=== PATIENT | male | born 1975 | race Caucasian/White ===

== ENCOUNTER 2016-03-09 12:12 | Emergency (ER) | payer OTHER ==
[2016-03-09 12:26] VITALS: TEMP 98.4; BMI 31.9
--- NOTE | 2016-03-09 13:56 | PDOC ---
History of Present Illness - General Chief Complaint: Cold Symptoms Stated Complaint: COUGH, FLU LIKE SYMPTOMS Time Seen by Provider: 03/09/16 13:34 History Source: Patient Exam Limitations: No Limitations - History of Present Illness Initial Comments: 03/09/16 13:50 40 yr male no medical history presents with cough for one week. no fever or chills. Pt's with same symptoms. Pt denies SOB no chest pain. Pt states in the past has used inhaler and makes him feel better. Severity: reports: mild Past History - Past Medical History Allergies/Adverse Reactions: Allergies Allergy/AdvReac Type Severity Reaction Status Date / Time No Known Allergies Allergy Verified 03/09/16 12:26 Home Medications: Ambulatory Orders Clindamycin [Cleocin -] 300 mg PO QID #40 capsule 11/29/14 Clindamycin [Cleocin -] 300 mg PO Q6HPO #28 capsule 12/01/14 Albuterol Sulfate Inhaler - [Ventolin Hfa Inhaler -] 1 - 2 inh PO Q4H #1 inhaler 03/09/16 Benzonatate [Tessalon Pearls -] 200 mg PO TID PRN #21 cap 03/09/16 Asthma: Yes Hypercholesterolemia: Yes - Psycho/Social/Smoking Cessation Hx Suicidal Ideation: No Smoking History: Never smoked Information on smoking cessation initiated: No Hx Alcohol Use: No Drug/Substance Use Hx: No Substance Use Type: None Hx Substance Use Treatment: No Respiratory Specific PMHX - Complaint Specific PMHX Bronchitis: Yes Review of Systems - Review of Systems Able to Perform ROS?: Yes Is the patient limited Andorran proficient: No Constitutional: No: Symptoms Reported HEENTM: No: Symptoms Reported Respiratory: Yes: See HPI, Cough Cardiac (ROS): No: Symptoms Reported ABD/GI: No: Symptoms Reported : No: Symptoms Reported Musculoskeletal: No: Symptoms Reported Integumentary: No: Symptoms Reported Neurological: No: Symptoms reported *Physical Exam - Vital Signs Last Vital Signs Temp Pulse Resp BP Pulse Ox 98.4 F 81 18 150/100 98 03/09/16 12:23 03/09/16 12:23 03/09/16 12:23 03/09/16 12:23 03/09/16 12:23 - Physical Exam General Appearance: Yes: Nourished, Appropriately Dressed HEENT: positive: EOMI, BARBIE, Normal ENT Inspection, TMs Normal, Pharynx Normal Neck: positive: Supple Respiratory/Chest: positive: Lungs Clear, Normal Breath Sounds Cardiovascular: positive: Regular Rhythm, Regular Rate Gastrointestinal/Abdominal: positive: Normal Bowel Sounds, Soft Musculoskeletal: positive: Normal Inspection Extremity: positive: Normal Capillary Refill, Normal Inspection, Normal Range of Motion Integumentary: positive: Normal Color, Dry, Warm Neurologic: positive: licensed staff mft II-XII NML intact, Fully Oriented, Alert, Normal Mood/ Affect *DC/Admit/Observation/Transfer Diagnosis at time of Disposition: Cough - Discharge Dispostion Disposition: HOME Condition at time of disposition: Good - Prescriptions Prescriptions: Benzonatate [Tessalon Pearls -] 200 mg PO TID PRN #21 cap PRN Reason: Cough Albuterol Sulfate Inhaler - [Ventolin Hfa Inhaler -] 1 - 2 inh PO Q4H #1 inhaler - Referrals Referrals: Pietro Thomas MD [Staff Physician] - - Patient Instructions Additional Instructions: drink pleanty of water to stay hydrated use the inhaler as directed take tessalon for coughing as needed follow with your doctor or with
[2016-03-09 14:04] VITALS: BP 137/89; PULSE 77
== END 2016-03-09 14:21 | disposition home or self-care (01) ==
LOC: JERFT 12:12
DX: R05 Cough (principal); J45.909 Unspecified asthma, uncomplicated; E78.00 Pure hypercholesterolemia, unspecified
CPT/HCPCS: 99281-25

== ENCOUNTER 2017-03-30 19:07 | Emergency (ER) | payer OTHER ==
--- NOTE | 2017-03-30 19:22 | PDOC ---
Rapid Medical Evaluation Time Seen by Provider: 03/30/17 19:18 Medical Evaluation: Allergies Allergy/AdvReac Type Severity Reaction Status Date / Time No Known Allergies Allergy Verified 03/09/16 12:26 I have performed a brief in-person evaluation of this patient. The patient presents with a chief complaint of: lock jaw on and off for the past few weeks Pertinent physical exam findings: none I have ordered the following: nothing The patient will proceed to the ED for further evaluation.
[2017-03-30 19:25] VITALS: TEMP 97.9; BMI 31.4
--- NOTE | 2017-03-30 20:09 | PDOC ---
Attending Attestation - Resident Resident Name: DonnyAndrearosa [email or web address] - ED Attending Attestation I have performed the following: I have examined & evaluated the patient, The case was reviewed & discussed with the resident, I agree w/resident's findings & plan, Exceptions are as noted - HPI HPI: 03/30/17 21:14 41y M no pmhx presents with with complaint of neck spasms. The pt states that he occasionally has a very severe spasm of his neck that lasts for 5-10 min, and he usually forces his neck back to its position and that resolves it. HE last had this episode on Sunday when he got home from work when he bent over. His previous episode prior to that was 2 years ago. THe pt denies any numbness/ tingling/weakness, cp, palpitations, n/v, neck pain, fever/chills, back pain, abd pain. Pt states he has no known medical problems. he does use a host of otc supplements/natural meds. on exam the pts exam is unremarkble ent exam reveals no bnormal masses back exam unremarkble without any tenderness/massess pulm cta card: rrr w/o mrg psych: excited, but w/o pressured spech, no si or hi neuro no facial assymetric, cmo & president strenth symmetric b/l, normal gait pt does appear very energenic, ddx hyperthyroid vs psych/hypmania, his neck spasms/movements -?msk spasms vs. ?focal seizures? - pt has a couple of episodes of trauma in the past (head injury when he was very young, and a fall from roof approx 10-15 yrs ago without any head injury or LOC) will r/o metabolic dernagements here if unremarkble will have pt fu with PMD and neuro 03/30/17 22:39 pts labs reviewed TSH slightly elevated ALT/AST also slightly elevated will refer the pt to his PMD and neuro for fu Heart Score/ECG Review - ECG Impressions Comment:: 03/30/17 22:40 Twelve-lead EKG was performed and reviewed by me. There is normal sinus rhythm with a normal rate. rate of 79 Left axis deviation no sT changes suggestive of acute ischemia
--- NOTE | 2017-03-30 20:44 | PDOC ---
History of Present Illness - General Chief Complaint: Pain Stated Complaint: HEADACHE Time Seen by Provider: 03/30/17 19:18 - History of Present Illness Initial Comments: 41 year old male with no PMH presenting for sudden onset right jaw pain and contraction earlier today. States that he has had these episodes of jaw pain and contractions over the past few years but has never seen a physician for this and does not have a PCP. Of note, during the entire exam the patient was extremely energetic and had very rapid, expressive hand movements with fast speech. States that he sleeps very little and often has very high energy. Per family at bedside, he has episodes where he is much more energetic than usual and he is currently in one of those episodes. The patient denies any VH/AH, substance abuse, ideas grandiosity, fevers, chills, nausea, vomiting, diarrhea, constipation, SOB, cough, or other illness. Of note, he does take many herbal and nutritional supplements including B vitamins, multivitamin, garlic, fish oil , flack seed oil, ginseng, megamen supplement, and a few other supplements. 03/30/17 20:16 Past History - Past Medical History Allergies/Adverse Reactions: Allergies Allergy/AdvReac Type Severity Reaction Status Date / Time No Known Allergies Allergy Verified 03/09/16 12:26 Home Medications: Ambulatory Orders Albuterol Sulfate Inhaler - [Ventolin Hfa Inhaler -] 1 - 2 inh PO Q4H #1 inhaler 03/09/16 Asthma: Yes CVA: No COPD: No Hypercholesterolemia: Yes - Suicide/Smoking/Psychosocial Hx Smoking History: Never smoked Have you smoked in the past 12 months: No Information on smoking cessation initiated: No Hx Alcohol Use: No Drug/Substance Use Hx: No Substance Use Type: None Hx Substance Use Treatment: No Review of Systems - Review of Systems Constitutional: No: Chills, Diaphoresis, Fever, Loss of Appetite HEENTM: No: Eye Pain, Blurred Vision Respiratory: No: Cough, Orthopnea, Shortness of Breath Cardiac (ROS): No: Chest Pain, Edema, Irregular Heart Rate ABD/GI: No: Diarrhea, Nausea, Vomiting : No: Dysuria, Discharge, Frequency, Hematuria, Pain Musculoskeletal: No: Back Pain, Gout, Joint Pain Integumentary: No: Bruising, Lesions, Lumps, Pallor Neurological: Yes: Paresthesia. No: Headache, Numbness Psychiatric: No: Anxiety, Depression, Frequent Crying, Emotional Problems *Physical Exam - Vital Signs Last Vital Signs Temp Pulse Resp BP Pulse Ox 97.9 F 94 H 16 167/119 97 03/30/17 19:20 03/30/17 19:20 03/30/17 19:20 03/30/17 19:20 03/30/17 19:20 - Physical Exam General Appearance: Yes: Nourished, Appropriately Dressed, Other (Hyperactive). No: Apparent Distress HEENT: positive: EOMI, BARBIE, Normal ENT Inspection, Normal Voice, Symmetrical Neck: positive: Trachea midline, Normal Thyroid, Supple. negative: Tender, Rigid Respiratory/Chest: positive: Lungs Clear, Normal Breath Sounds. negative: Chest Tender, Respiratory Distress, Accessory Muscle Use Cardiovascular: positive: Regular Rhythm, Regular Rate Gastrointestinal/Abdominal: positive: Normal Bowel Sounds, Flat, Soft. negative : Tender Musculoskeletal: positive: Normal Inspection Extremity: positive: Normal Capillary Refill, Normal Inspection, Normal Range of Motion. negative: Tender Integumentary: positive: Normal Color, Dry, Warm Neurologic: positive: Fully Oriented, Alert, Normal Response, Motor Strength 5/ 5. negative: Normal Mood/Affect (He was pleasant but talking at a very fast rate and overall very hyperactive.) ED Treatment Course - LABORATORY CBC & Chemistry Diagram: 03/30/17 20:30 03/30/17 20:30 Medical Decision Making - Medical Decision Making 41 year old male presenting with sudden right jaw spasm earlier today and has a history of these but they have become more frequent. Coincidentally, he has also lost his job recently. Per his family he is currently more energetic than usual. He does take a slew of supplements but denies drug/alcohol/ or other substance abuse. Differential for this presentation is quite broad. His PE was unremarkable. His hyperactivity leads me to believe he is intoxicated, he is experiencing a manic/ hypomanic episode, he has a hormonal/ electrolyte imbalance, or he has some toxidrome from his supplementation. Will get CBC, CMP , TSH, and urine drug screen. 03/30/17 20:51 TSH slightly elevated at 4.72 and LFTs elevated at AST 39 and ALT 86. WBC slightly elavted at 12.6. Will have patient follow up with the [facility] and an ENT for vague right ear complaints. He does have a small non-draining cyst on his right ear lobe. 03/30/17 22:39 *DC/Admit/Observation/Transfer Diagnosis at time of Disposition: Jaw pain, non-TMJ - Discharge Dispostion Disposition: HOME Condition at time of disposition: Improved Admit: No - Referrals Referrals: [facility] [Provider Group] - Patient Instructions Additional Instructions: Your labs were mostly normal except your thyroid hormone was slightly elevated and your liver enzymes were also slightly elevated. These should be followed up by your primary care physician. We are unsure why you are having these jaw pains and sensations but you should discuss this with your doctor at the clinic. Please go to the [facility] on Sunday to be evaluated. Please return if you have any new or worsening symptoms. - Post Discharge Activity
[2017-03-30 20:47] LABS: BASO % 0.3 % (0-2.0); EOS % 0.5 % (0-4.5); HEMATOCRIT 49.7 % (35.4-49); HEMOGLOBIN 16.9 GM/dL (11.7-16.9); MCH 29.2 pg (25.7-33.7); MCHC 34.1 g/dl (32.0-35.9); MEAN CELL VOLUME 85.8 fl (80-96); MEAN PLT VOLUME 8.4 fl (7.5-11.1); MONO % 6.3 % (3.8-10.2); NEUT % 78.9 % (42.8-82.8); PLATELET COUNT 221 K/MM3 (134-434); RBC 5.79 M/mm3 (4.00-5.60); RDW 13.2 % (11.9-15.9); WHITE BLOOD COUNT 12.7 K/mm3 (4.0-10.0)
[2017-03-30 21:06] LABS: URINE APPEARANCE CLEAR; URINE BILIRUBIN NEGATIVE (NEGATIVE); URINE BLOOD NEGATIVE (NEGATIVE); URINE COLOR LTYELLOW; URINE GLUCOSE (UA) NEGATIVE (NEGATIVE); URINE KETONE NEGATIVE (NEGATIVE); URINE LEUK ESTERASE NEGATIVE (NEGATIVE); URINE NITRITE NEGATIVE (NEGATIVE); URINE PROTEIN NEGATIVE (NEGATIVE); URINE UROBILINOGEN NEGATIVE mg/dL (0.2-1.0)
[2017-03-30 21:21] LABS: ALBUMIN 4.4 g/dl (3.4-5.0); ANION GAP 9 (8-16); BILIRUBIN,TOTAL 0.9 mg/dL (0.2-1.0); BLOOD UREA NITROGEN 15 mg/dL (7-18); CALCIUM 9.4 mg/dL (8.5-10.1); CHLORIDE 103 mmol/L (98-107); CO2 25 mmol/L (21-32); CREATININE 1.1 mg/dL (0.7-1.3); GLUCOSE,RANDOM 98 mg/dL (74-106); POTASSIUM 3.8 mmol/L (3.5-5.1); SGOT/AST 39 U/L (15-37); SGPT/ALT 86 U/L (12-78); SODIUM 137 mmol/L (136-145)
[2017-03-30 21:28] LABS: COCAINE, UR NEGATIVE ng/ml (CUTOFF=300); METHADONE, UR NEGATIVE ng/ml (CUTOFF=300); OPIATES, URI NEGATIVE ng/ml (CUTOFF=300); PHENCYCLIDINE,URINE NEGATIVE ng/ml (CUTOFF=25); URINE AMPHETAMINES NEGATIVE ng/ml (CUTOFF=500); URINE BARBITURATES NEGATIVE ng/ml (CUTOFF=200); URINE BENZODIAZEPINES NEGATIVE ng/ml (CUTOFF=200)
[2017-03-30 21:29] LABS: ALK PHOS 106 U/L (45-117)
[2017-03-30 21:48] VITALS: BP 120/90; PULSE 92
--- NOTE | 2017-03-31 08:52 | EKG ---
Test Reason : Blood Pressure : / mmHG Vent. Rate : 079 BPM Atrial Rate : 079 BPM P-R Int : 132 ms QRS Dur : 080 ms QT Int : 382 ms P-R-T Axes : 057 -35 -01 degrees QTc Int : 438 ms NORMAL SINUS RHYTHM LEFT AXIS DEVIATION ABNORMAL ECG WHEN COMPARED WITH ECG OF 29-NOV-2014 21:40, NO SIGNIFICANT CHANGE WAS FOUND Confirmed by MARIA ALEJANDRA PAGE, TERI ([id number]) on 03/31/2017 8:51:58 AM Referred By: Confirmed By:TERI BESS MD
== END 2017-03-30 23:02 | disposition home or self-care (01) ==
LOC: JER 19:07
DX: R68.84 Jaw pain (principal); J45.909 Unspecified asthma, uncomplicated
CPT/HCPCS: 36415; 80053; 80307; 81003; 84439; 84443; 85025; 86593; 87389; 87491; 87591; 93005; 93010; 99283-25

== ENCOUNTER 2018-07-27 21:19 | Emergency (ER) | payer OTHER | END 2018-07-27 23:01 | disposition home or self-care (01) | LOC: JERFT 21:19 → JER 23:01 ==

== ENCOUNTER 2023-02-23 14:17 | Emergency (ER) | payer OTHER ==
[2023-02-23 14:40] VITALS: BP 126/79; PULSE 109; RESP 17; TEMP 98.3; BMI 24.3
[2023-02-23 16:26] LABS: BASO % 0.8 % (0-2.0); EOS % 0.9 % (0-4.5); HEMATOCRIT 51.7 % (35.4-49); HEMOGLOBIN 17.5 GM/dL (11.7-16.9); LYMPH % 23.1 % (8-40); MCH 28.2 pg (25.7-33.7); MCHC 33.9 g/dl (32.0-35.9); MEAN CELL VOLUME 83.2 fl (80-96); MEAN PLT VOLUME 7.7 fl (7.5-11.1); MONO % 7.3 % (3.8-10.2); NEUT % 67.9 % (42.8-82.8); PLATELET COUNT 291 10^3/uL (134-434); RBC 6.21 M/mm3 (4.00-5.60); RDW 14.2 % (11.9-15.9)
[2023-02-23 16:30] LABS: EPI CELLS 2 /uL (0-25.1); HYALINE CASTS 0 /uL (0-3.1); URINE APPEARANCE CLEAR; URINE BACTERIA 9 /uL (0-1359); URINE BILIRUBIN NEGATIVE (NEGATIVE); URINE COLOR YELLOW; URINE GLUCOSE (UA) NEGATIVE (NEGATIVE); URINE KETONE NEGATIVE (NEGATIVE); URINE LEUK ESTERASE NEGATIVE (NEGATIVE); URINE NITRITE NEGATIVE (NEGATIVE); URINE PROTEIN 1+ (NEGATIVE); URINE RBC 22 /uL (0-23.9); URINE UROBILINOGEN 0.2 mg/dL (0.2-1.0); URINE WBC 7 /uL (0-25.8)
[2023-02-23 16:49] LABS: POTASSIUM 3.6 mmol/L (3.5-5.1)
[2023-02-23 16:51] LABS: BLOOD UREA NITROGEN 12.9 mg/dL (7-18); CALCIUM 8.9 mg/dL (8.5-10.1)
[2023-02-23 16:55] LABS: CREATININE 1.2 mg/dL (0.55-1.3)
[2023-02-23] MEDS ORDERED: TAMSULOSIN HCL 0.4 MG CAP PO ONE (19:15)
[2023-02-23] MEDS ORDERED: TAMSULOSIN HCL 0.4 MG CAP ONE (19:48)
== END 2023-02-23 20:33 | disposition home or self-care (01) ==
LOC: JER 14:17
DX: R30.0 Dysuria (principal); R35.0 Frequency of micturition; R33.9 Retention of urine, unspecified; N40.1 Benign prostatic hyperplasia with lower urinary tract symptoms; R39.14 Feeling of incomplete bladder emptying
CPT/HCPCS: 36415; 76856-TC; 80048; 81003; 85025; 87086; 99284-25

== ENCOUNTER 2023-04-24 16:59 | Emergency (ER) | payer OTHER ==
[2023-04-24 17:55] VITALS: BP 162/100; PULSE 103; RESP 18; TEMP 98.2; BMI 34.9
[2023-04-24] MEDS ORDERED: ACETAMINOPHEN INJECTION 100 ML IVPB ONE (19:57)
[2023-04-24 20:08] LABS: BASO % 0.8 % (0-2.0); EOS % 0.9 % (0-4.5); HEMATOCRIT 48.9 % (35.4-49); HEMOGLOBIN 16.3 GM/dL (11.7-16.9); LYMPH % 19.7 % (8-40); MCH 27.9 pg (25.7-33.7); MCHC 33.3 g/dl (32.0-35.9); MEAN CELL VOLUME 83.9 fl (80-96); MEAN PLT VOLUME 7.7 fl (7.5-11.1); MONO % 6.8 % (3.8-10.2); NEUT % 71.8 % (42.8-82.8); PLATELET COUNT 261 10^3/uL (134-434); RBC 5.83 M/mm3 (4.00-5.60); RDW 13.5 % (11.9-15.9); WHITE BLOOD COUNT 14.2 K/mm3 (4.0-10.0)
[2023-04-24] MEDS: ACETAMINOPHEN 1000 MG/100 ML BAG IVPB ONE (20:08)
[2023-04-24 20:28] LABS: POTASSIUM 3.4 mmol/L (3.5-5.1)
[2023-04-24 20:30] LABS: ALBUMIN 3.8 g/dl (3.4-5.0)
[2023-04-24 20:33] LABS: CREATININE 1.2 mg/dL (0.55-1.3)
[2023-04-24 20:35] LABS: TOT PROT 7.5 g/dl (6.4-8.2)
[2023-04-24 21:51] LABS: ACTIVATED PTT 35.5 SECONDS (25.2-36.5); INR 1.01 (0.83-1.09); PROTHROMBIN TIME (PATIENT) 11.7 SEC (9.7-13.0)
[2023-04-24] MEDS: SODIUM CHLORIDE 0.9% 500 ML INFUS.BAG IV ONE (23:25)
[2023-04-24 23:28] LABS: URINE APPEARANCE CLEAR; URINE BILIRUBIN NEGATIVE (NEGATIVE); URINE COLOR YELLOW; URINE GLUCOSE (UA) NEGATIVE (NEGATIVE); URINE KETONE NEGATIVE (NEGATIVE); URINE LEUK ESTERASE NEGATIVE (NEGATIVE); URINE NITRITE NEGATIVE (NEGATIVE); URINE PROTEIN TRACE (NEGATIVE); URINE UROBILINOGEN 0.2 mg/dL (0.2-1.0)
== END 2023-04-25 01:15 | disposition home or self-care (01) ==
LOC: JER 16:59
PROC: 3E033NZ Introduction of Analgesics, Hypnotics, Sedatives into Peripheral Vein, Percutaneous Approach (ICD-10-PCS; principal; 2023-04-24)
DX: R31.9 Hematuria, unspecified (principal); R30.0 Dysuria; R33.9 Retention of urine, unspecified; N40.1 Benign prostatic hyperplasia with lower urinary tract symptoms; R35.0 Frequency of micturition; R10.9 Unspecified abdominal pain
CPT/HCPCS: 36415; 74177-TC; 80053; 81003; 85025; 85610; 85730; 86850; 86900; 86901; 87086; 96374; 99285-25; J0131; Q9967

== ENCOUNTER 2023-10-15 16:39 | Emergency (ER) | payer OTHER ==
[2023-10-15 17:06] VITALS: BP 168/100; PULSE 92; RESP 18; TEMP 98.8; BMI 33.0
== END 2023-10-15 22:42 | disposition home or self-care (01) ==
LOC: JER 16:39
DX: E11.621 Type 2 diabetes mellitus with foot ulcer (principal); L97.529 Non-pressure chronic ulcer of other part of left foot with unspecified severity; R20.2 Paresthesia of skin; R20.0 Anesthesia of skin
CPT/HCPCS: 73630-TC-LT; 73660-TC-LT-FY; 99283-25

== ENCOUNTER 2024-11-22 03:50 | Inpatient (IN) | payer OTHER ==
[2024-11-22 07:15] LABS: ABSOLUTE IMMATURE GRANULOCYTES 0.12 x10^3/uL (0.0-0.031); BASOPHILS # 0.04 x10^3/uL (0.01-0.08); EOSINOPHIL % 0.8 % (0.8-7.0); EOSINOPHILS # 0.12 x10^3/uL (0.04-0.54); MCHC 33.1 g/dl (32.3-36.5); MEAN CELL VOLUME 83.0 fl (79.0-92.2); MEAN PLT VOLUME 8.5 fl (9.4-12.4); MONOCYTE # 1.22 x10^3/uL (0.30-0.82); MONOCYTE % 7.7 % (5.3-12.2); RDW 12.9 % (12.1-15.9)
[2024-11-22 07:27] LABS: GLUCOSE,RANDOM 125.0 mg/dL (74-106); TOT PROT 6.6 g/dl (6.4-8.2)
[2024-11-22 07:28] LABS: CO2 22.0 mmol/L (21-32)
[2024-11-22 07:30] LABS: ALK PHOS 123.0 U/L (40-150)
[2024-11-22 07:32] LABS: SGPT/ALT 28.0 U/L (0-55)
[2024-11-22 07:33] LABS: CREATININE 0.81 mg/dL (0.55-1.3); SGOT/AST 21.0 U/L (5-34)
[2024-11-22 08:30] LABS: URINE APPEARANCE CLOUDY; URINE COLOR YELLOW; URINE GLUCOSE (UA) NEGATIVE (NEGATIVE)
[2024-11-22 08:31] LABS: URINE BILIRUBIN NEGATIVE (NEGATIVE); URINE KETONE NEGATIVE (NEGATIVE)
[2024-11-22 08:32] LABS: URINE LEUK ESTERASE 2+ (NEGATIVE); URINE NITRITE POSITIVE (NEGATIVE); URINE PROTEIN 2+ (NEGATIVE); URINE UROBILINOGEN 0.2 mg/dL (0.2-1.0)
[2024-11-22] MEDS ORDERED: CEFTRIAXONE 1 GM/50 ML BAG ONE (09:18)
[2024-11-22] MEDS: SODIUM CHLORIDE 0.9% 500 ML INFUS.BAG IV ONE (10:15)
[2024-11-22] MEDS: LACTULOSE 20 GM/30 ML UDC (FOR ORAL USE ONLY) PO SCH (11:44)
[2024-11-22] MEDS: LACTATED RINGERS SOLUTION 1,000 ML/1,000 ML INFUS.BAG IV SCH (11:44)
[2024-11-22] MEDS ORDERED: LACTULOSE 20 GM/30 ML UDC (FOR ORAL USE ONLY) ONE (11:46)
[2024-11-22 13:44] VITALS: BMI 28.8
[2024-11-22] MEDS: FLU VACC TS2025-26(6MOS UP)/PF 45 MCG/0.5 ML SYRINGE IM ONE (15:59)
[2024-11-22] MEDS: PNEUMOC 20-VAL CONJ-DIP CRM/PF 0.5 ML SYRINGE IM ONE (16:00)
[2024-11-22] MEDS: DOCUSATE SODIUM 100 MG CAPSULE (FP) PO SCH (22:50)
[2024-11-22] MEDS: HEPARIN NA (PORCINE) 5,000 UNITS/ML 1ML VIAL SQ SCH (22:50)
[2024-11-23 10:24] LABS: ABSOLUTE IMMATURE GRANULOCYTES 0.23 x10^3/uL (0.0-0.031); BASOPHILS # 0.06 x10^3/uL (0.01-0.08); EOSINOPHIL % 0.9 % (0.8-7.0); EOSINOPHILS # 0.10 x10^3/uL (0.04-0.54); MCHC 32.7 g/dl (32.3-36.5); MEAN CELL VOLUME 85.7 fl (79.0-92.2); MEAN PLT VOLUME 8.9 fl (9.4-12.4); MONOCYTE # 1.02 x10^3/uL (0.30-0.82); MONOCYTE % 9.5 % (5.3-12.2); RDW 13.2 % (12.1-15.9)
[2024-11-23] MEDS: CEFTRIAXONE 1 GM in DEXTROSE 5%-WATER - 50 ML IVPB SCH (10:27)
[2024-11-23] MEDS: ATORVASTATIN CA 40 MG TABLET (FP) PO SCH (10:28)
[2024-11-23] MEDS: TAMSULOSIN HCL 0.4 MG CAP PO SCH (10:28)
[2024-11-23] MEDS: LOSARTAN POTASSIUM 25 MG TABLET PO SCH (10:28)
[2024-11-23] MEDS: amLODIPine BESYLATE 5 MG TABLET (FP) PO SCH (10:29)
[2024-11-23 12:13] LABS: GLUCOSE,RANDOM 136.0 mg/dL (74-106)
[2024-11-23 12:15] LABS: CO2 22.0 mmol/L (21-32)
[2024-11-23 12:19] LABS: CREATININE 1.12 mg/dL (0.55-1.3)
[2024-11-23] MEDS: POLYETHYLENE GLYCOL (HEALTHYLAX) 3350 17 GM PACKET PO SCH (17:14)
[2024-11-24 08:40] LABS: MCHC 33.1 g/dl (32.3-36.5); MEAN CELL VOLUME 84.7 fl (79.0-92.2); MEAN PLT VOLUME 9.2 fl (9.4-12.4); RDW 13.0 % (12.1-15.9)
[2024-11-24 09:35] LABS: GLUCOSE,RANDOM 89.0 mg/dL (74-106); TOT PROT 6.2 g/dl (6.4-8.2)
[2024-11-24 09:36] LABS: CO2 23.0 mmol/L (21-32)
[2024-11-24 09:38] LABS: ALK PHOS 108.0 U/L (40-150)
[2024-11-24 09:41] LABS: CREATININE 1.18 mg/dL (0.55-1.3); SGOT/AST 22.0 U/L (5-34); SGPT/ALT 26.0 U/L (0-55)
[2024-11-24] MEDS: SODIUM CHLORIDE 1,000 ML IV SCH (11:48)
[2024-11-24 15:29] LABS: IRON SERUM 96.0 ug/dL (50-175)
[2024-11-24 15:48] LABS: GLUCOSE,RANDOM 105.0 mg/dL (74-106)
[2024-11-24 15:49] LABS: CO2 26.0 mmol/L (21-32)
[2024-11-24 15:53] LABS: CREATININE 1.17 mg/dL (0.55-1.3)
[2024-11-24] MEDS: POLYETHYLENE GLYCOL (HEALTHYLAX) 3350 17 GM PACKET PO SCH (15:56)
[2024-11-24] MEDS: SODIUM CHLORIDE 1,000 ML IV STA (17:21)
[2024-11-24 21:30] VITALS: RESP 18
[2024-11-24] MEDS ORDERED: LACTULOSE 20 GM/30 ML UDC (FOR ORAL USE ONLY) PO ONE (23:45)
[2024-11-25] MEDS: LACTULOSE 20 GM/30 ML UDC (FOR ORAL USE ONLY) PO ONE (05:17)
[2024-11-25 08:29] LABS: MCHC 32.6 g/dl (32.3-36.5); MEAN CELL VOLUME 85.5 fl (79.0-92.2); MEAN PLT VOLUME 8.9 fl (9.4-12.4); RDW 13.2 % (12.1-15.9)
[2024-11-25 09:03] LABS: GLUCOSE,RANDOM 93.0 mg/dL (74-106)
[2024-11-25 09:04] LABS: CO2 24.0 mmol/L (21-32)
[2024-11-25 09:06] LABS: ALK PHOS 113.0 U/L (40-150)
[2024-11-25 09:09] LABS: CREATININE 1.06 mg/dL (0.55-1.3); SGOT/AST 26.0 U/L (5-34); SGPT/ALT 30.0 U/L (0-55)
[2024-11-25 09:17] LABS: TOT PROT 6.9 g/dl (6.4-8.2)
[2024-11-25] MEDS: TAMSULOSIN HCL 0.4 MG CAP PO SCH (10:32)
[2024-11-25 13:04] LABS: IRON SERUM 98.0 ug/dL (50-175)
[2024-11-25] MEDS ORDERED: LOSARTAN POTASSIUM 25 MG TABLET PO SCH (14:39)
[2024-11-26 09:03] VITALS: BP 118/71; PULSE 72; TEMP 97.7
== END 2024-11-26 11:44 | disposition home or self-care (01) | DRG 463 ==
LOC: JER 03:50 → JERBED 09:42 → J5S 12:12 → UNDODISIN 11-24 18:59 → J5S 11-25 18:08
PROVIDERS: ADMIT Internal Medicine
DX: N39.0 Urinary tract infection, site not specified (principal); E87.1 Hypo-osmolality and hyponatremia; N31.9 Neuromuscular dysfunction of bladder, unspecified; E11.9 Type 2 diabetes mellitus without complications; E78.5 Hyperlipidemia, unspecified; J45.909 Unspecified asthma, uncomplicated; R33.9 Retention of urine, unspecified; B96.89 Other specified bacterial agents as the cause of diseases classified elsewhere; I10 Essential (primary) hypertension; K59.00 Constipation, unspecified
CPT/HCPCS: 36415; 74018-TC-FY; 80048; 80053; 81003; 82728; 82962; 83540; 83550; 83605; 85025; 85027; 87086; 93005; 93010; 97116-GP; 99285-25